=== PATIENT | male | born 1985 | race Hispanic/Latino ===

== ENCOUNTER 2017-04-20 20:33 | Emergency (ER) | payer SELFPAY ==
[2017-04-20] MEDS ORDERED: Fluorescein Opthalmic Strip ONE (20:42)
[2017-04-20] MEDS ORDERED: Erythromycin Base 0.5% Oint 1 GM TUBE ONE (20:53)
[2017-04-20] MEDS ORDERED: Hydrochlorothiazide 25 MG TAB ONE (20:54)
== END 2017-04-20 21:02 | disposition home or self-care (01) ==
LOC: SCSER 20:33
DX: S05.02XA Injury of conjunctiva and corneal abrasion without foreign body, left eye, initial encounter (principal); X58.XXXA Exposure to other specified factors, initial encounter
CPT/HCPCS: 99283